=== PATIENT | female | born 2005 | race Hispanic/Latino ===

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

== ENCOUNTER 2024-06-05 23:03 | Emergency (ER) | payer OTHER ==
[~2024-06-05] VITALS: Ht 157.5 cm; Wt 81.0 kg
[~2024-06-05 23:03] MED LIST changes: +EPIPEN 2-P0.3 MG/0.3 IJ; +PREDNISONE20 MG PO; +ZYRTEC10 MG PO
[2024-06-05] MEDS ORDERED: DiphenhydrAMINE HCL 50 MG/ML SDV IM ONE (23:15)
[2024-06-05] MEDS ORDERED: DEXAMETHASONE SOD. PHOSPHATE 10 MG/ML VIAL IM ONE (23:15)
[2024-06-05 23:17] VITALS: BP 135/102
[2024-06-05 23:30] VITALS: BP 137/96
[2024-06-06 00:31] VITALS: BP 129/84
[2024-06-06 01:00] VITALS: BP 137/87
[2024-06-06 01:30] VITALS: BP 116/73
[2024-06-06] MEDS ORDERED: EPIPEN 2-P0.3 MG/0.3 IM (01:41)
[2024-06-06 01:55] VITALS: BP 116/73
== END 2024-06-06 01:55 | disposition home or self-care (01) | DRG 916 ==
LOC: ED 23:03
DX: T78.02XA Anaphylactic reaction due to shellfish (crustaceans), initial encounter (principal)
CPT/HCPCS: J1100; J1200